=== PATIENT | female | born 1955 | race Hispanic/Latino ===

== ENCOUNTER 2023-02-20 11:11 | Outpatient (CLI) | payer MEDICARE | END 2023-02-20 11:12 | disposition home or self-care (01) | LOC: CSHMAMMO 11:11 | PROVIDERS: ATTEND Nurse Practitioner | DX: Z12.31 Encounter for screening mammogram for malignant neoplasm of breast (principal); N64.89 Other specified disorders of breast; Z90.11 Acquired absence of right breast and nipple | CPT/HCPCS: 77063; 77067 ==

== ENCOUNTER 2023-03-28 09:01 | Outpatient (CLI) | payer MEDICARE | END 2023-03-28 09:02 | disposition home or self-care (01) | LOC: CSHMAMMO 09:01 | PROVIDERS: ATTEND Nurse Practitioner | DX: N60.41 Mammary duct ectasia of right breast (principal) | CPT/HCPCS: 76642; 77065; G0279 ==